=== PATIENT | male | born 1990 | race African-American/Black ===

== ENCOUNTER 2016-09-15 10:41 | Emergency (ER) | payer OTHER ==
[~2016-09-15] VITALS: Ht 182.9 cm; Wt 72.6 kg
== END 2016-09-15 13:23 | disposition home or self-care (01) ==
LOC: CFTX 10:41 → CED 10:41 → CFTX 12:14
DX: S61.412A Laceration without foreign body of left hand, initial encounter (principal); Z23 Encounter for immunization; S61.212A Laceration without foreign body of right middle finger without damage to nail, initial encounter; J45.909 Unspecified asthma, uncomplicated; W26.0XXA Contact with knife, initial encounter; Y92.009 Unspecified place in unspecified non-institutional (private) residence as the place of occurrence of the external cause
CPT/HCPCS: 90471; 90715; 99283